=== PATIENT | male | born 1970 | race American Indian/Alaskan Native ===

== ENCOUNTER 2016-12-01 15:49 | Emergency (ER) | payer OTHER ==
--- NOTE | 2016-12-01 16:23 | Emergency Department Report ---
ED CPR HPI - General Chief Complaint: Cardiac Arrest/CPR Stated Complaint: CARDIAC ARREST Time Seen by Provider: 12/01/16 15:57 Source: EMS Mode of arrival: Stretcher Limitations: Other - History of Present Illness Initial Comments: 46-year-old male presents to the emergency department via EMS in cardiac arrest. Per report, the patient was last seen by family this morning. Family returned home this afternoon at approximately 3 PM and found the patient unresponsive. EMS reports they arrived on scene at 1505. Patient was in asystole and not breathing. CPR was started and a Combitube was inserted. The patient received 2 mg of Narcan and a total of 3 mg of epinephrine prior to arrival in the emergency department. EMS reports a history of drug abuse. Further history is unable to be obtained from the patient due to his clinical condition. MD Complaint: found unresponsive Place: home Bystander CPR Performed: No AED Applied by Bystander/Change House Attendant: No Initial Findings in the Field: unresponsive, no respirations, no pulse ROSC in the Field: No Associated Injuries: No Treatments Prior to Arrival: other airway device, chest compressions, epinephrine mgs # (3), other (Narcan) ED Review of Systems ROS: Stated complaint: CARDIAC ARREST Other details as noted in HPI Comment: Unobtainable due to pts medical conditions ED Past Medical Hx - Past Medical History Hx Psychiatric Treatment: Yes (polysubstance abuse) - Surgical History Additional Surgical History: Unable to obtain - Social History Smoking Status: Unknown if ever smoked ED Physical Exam - General Limitations: Other General appearance: obtunded - Head Head exam: Present: atraumatic, normocephalic - Eye Eye exam: Absent: PERRL (pupils 5 mm equal and fixed), scleral icterus - ENT ENT exam: Present: normal exam, normal orophraynx (Combitube in place), mucous membranes moist - Neck Neck exam: Present: normal inspection, full ROM - Respiratory Respiratory exam: Present: normal lung sounds bilaterally (with bag ventilation) - Cardiovascular Cardiovascular Exam: Present: other (no palpable pulse) - GI/Abdominal GI/Abdominal exam: Present: soft. Absent: distended - Extremities Exam Extremities exam: Present: normal inspection, full ROM - Back Exam Back exam: Present: normal inspection, full ROM - Neurological Exam Neurological exam: Present: other (GCS 3T (E1, V1T, M1)) - Skin Skin exam: Present: warm, dry, intact ED Medical Decision Making - Medical Decision Making CPR was continued in the emergency department under my supervision. Initial cardiac rhythm was asystole. Bedside ultrasound revealed no cardiac activity. On arrival in the emergency department, the patient had been with EMS for approximately 45 minutes and then asystole the entire time. Further efforts were deemed futile. Time of recorded at 1550. Family has been notified. Critical care attestation.: If time is entered above; I have spent that time in minutes in the direct care of this critically ill patient, excluding procedure time. ED Disposition Clinical Impression: Cardiac arrest Disposition: Is pt being admited?: No Condition: Stable Referrals: PRIMARY CARE, [Primary Care Provider] - 3-5 Days Time of Disposition: 15:50
== END 2016-12-01 17:47 ==
LOC: ED 15:52
DX: I46.9 Cardiac arrest, cause unspecified (principal); F19.10 Other psychoactive substance abuse, uncomplicated
CPT/HCPCS: 99285